=== PATIENT | male | born 1965 | race Caucasian/White ===

== ENCOUNTER 2018-11-13 17:57 | Observation (INO) ==
[2018-11-13] MEDS ORDERED: *HR* HYDROmorphone (PF) 1 MG/ML SYRINGE IVP ONE ×2 (18:03→18:33)
[2018-11-13] MEDS ORDERED: 0.9 % Sodium Chloride 1,000 ML IVC ONE (18:03)
[2018-11-13] MEDS ORDERED: Ondansetron 4 MG/2 ML VIAL IVP ONE (18:03)
--- NOTE | 2018-11-13 18:04 | Emergency Department Note ---
Disposition Clinical Impression: Hip dislocation, left Qualifiers: Encounter type: initial encounter Qualified Code(s): S73.005A - Unspecified dislocation of left hip, initial encounter Disposition: Admitted As Inpatient Condition: Good Referrals: NONE,PCP [Primary Care Provider] - Forms: ED Satisfaction Letter Lower Extremity Injury HPI - General Chief Complaint: ED Extremity Injury, Lower Stated Complaint: left hip and knee pain Time Seen by Provider: 11/13/18 18:02 Source: patient, EMS Mode of arrival: EMS Limitations: no limitations Nursing Notes Reviewed: Yes Vital Signs Reviewed: Yes - History of Present Illness HPI Narrative: Patient states he was working underneath a deck when about a 400 pound section fell from about 8 feet hitting him across the back of his left hip and femur. He was knocked to the ground and pinned with severe pain in the proximal left femur. He denies any injury or impact his head, neck or midline of his back. He denies injury to the upper extremities or right lower extremity. He reports severe pain in about the proximal third a left femur and the leg appears to be mildly internally rotated. He has been brought in by EMS for evaluation. Pt Subjective Complaint: leg injury Injury location: Left thigh Onset (ago): Just LEAD TINNER Mechanism of Injury: blunt Context: direct blow Place: home Pain Severity: severe Improves with: nothing Worsens with: movement, palpation Associated symptoms: Reports: unable to bear weight, deformity. Denies: paresthesias - Related Data Home Medications Medication Instructions Recorded Confirmed No Known Home Drugs 11/13/18 11/13/18 Allergies Allergy/AdvReac Type Severity Reaction Status Date / Time No Known Allergies Allergy Verified 11/13/18 17:59 All systems ED: reviewed and negative except as stated. Past Medical History - Past Medical History Attestation: Yes The following information was validated with the patient. Source: patient, nursing notes reviewed Physical Exam - General Limitations: no limitations General appearance: alert, anxious, in distress - Head Head exam: atraumatic, normocephalic, normal inspection - Eye Eye exam: Present: normal appearance, PERRL, EOMI. Absent: scleral icterus, conjunctival injection - ENT ENT exam: normal exam, normal oropharynx, mucous membranes moist - Neck Neck exam: Present: normal inspection, full ROM, trachea midline - Chest Chest inspection: Present: normal inspection, symmetric chest wall rise - Respiratory Respiratory exam: Present: normal lung sounds bilaterally. Absent: respiratory distress, wheezes, accessory muscle use - Cardiovascular Cardiovascular exam: Present: regular rate, normal rhythm, normal heart sounds - Abdominal Exam Abdominal exam: Present: soft, Non-Tender, normal bowel sounds. Absent: tende rness, distention, guarding, rebound, rigidity - Expanded Upper Extremity Exam Shoulder exam: Present: normal inspection, full ROM. Absent: tenderness, swelling Arm exam: Present: normal inspection, full ROM Elbow exam: Present: normal inspection, full ROM. Absent: tenderness, swelling Forearm/Wrist exam: Present: normal inspection, full ROM. Absent: tenderness, swelling Hand exam: Present: normal inspection, full ROM Vascular exam: Normal: capillary refill, radial pulse - Expanded Lower Extremity Exam Hip/Pelvis exam: Present: internal rotation, pelvis stable, other (Patient denies pain to palpation over the lateral aspect of left hip.). Absent: full ROM Upper leg exam: Present: other (Patient is no fracture deformity. He is internally rotated on the left femur with tenderness over the proximal femur). Absent: full ROM Knee exam: Present: normal inspection. Absent: tenderness, swelling Lower leg exam: Present: normal inspection, full ROM. Absent: tenderness, swelling Ankle exam: Present: normal inspection, full ROM. Absent: tenderness, swelling Foot/toe exam: Present: normal inspection, full ROM Neurovascular/Tendon exam: Present: normal capillary refill. Absent: pulse deficit Gait: not tested/not observed - Back Exam Back exam: Present: normal inspection, full ROM. Absent: tenderness, vertebral tenderness - Neurological Exam Neurological exam: Present: alert, oriented X3 - Psychiatric Psychiatric exam: Present: agitated, anxious - Skin Skin exam: Present: warm, dry, intact, normal color. Absent: diaphoresis, pallor Course Course Narrative: 191: Status post hip reduction I have contacted the orthopedist customer solutions supervisor to discuss his appropriate disposition. Dr Ball advises that he would recommend this patient to bear weight gingerly and use a walker. He would like to recheck later this next week to reassess and then continue to follow him for the possibility of developing avascular necrosis of the hip. He recommends pain medicine and discharged to home when able to ambulate with a walker. Care is discussed with the patient and he feels most comfortable sending the hospital for some more recovery before trying to ambulate. I discussed care with Dr. Steiner who is agreeable with observing for the night with continued oral pain medicine and then assessing ambulation with assistance and a walker in the morning. Verbal orders have been obtained and he is awaiting bed placement for admission. Vital Signs Temperature 98.2 F 11/13/18 18:00 Pulse Rate 76 11/13/18 18:00 Respiratory Rate 18 11/13/18 18:00 Blood Pressure 147/85 11/13/18 18:00 O2 Sat by Pulse Oximetry 100 11/13/18 18:00 Temperature 98 F 11/13/18 19:20 Pulse Rate 76 11/13/18 20:45 Respiratory Rate 18 11/13/18 20:45 Blood Pressure 142/78 11/13/18 20:45 O2 Sat by Pulse Oximetry 100 11/13/18 20:45 Oxygen Delivery Oxygen Delivery [] Nasal Cannula Oxygen Delivery [] Nasal Cannula Oxygen Delivery [] Nasal Cannula Oxygen Delivery [] Nasal Cannula,Ambu Bag Oxygen Delivery [] Nasal Cannula Oxygen Delivery Nasal Cannula Procedures - Orthopedic Joint Reduction Joint #1 Consent Obtained: verbal consent, written consent Time Out Performed: Yes Side: left Joint Reduction Location: hip ASA Classification: CLASS I-Normal, healthy patient Analgesia: procedural sedation Local Anesthesia: other anesthetic Amount of anesthesic used (mL): 15 (etomidate) Shoulder Technique Used (if applicable): other ("Capt. Batres") Post-reduction neuro exam: intact Post-reduction vascular: intact Post Reduction X-Ray Obtained: Yes Post Reduction X-Ray Results: reduced Patient Tolerated Procedure: well, no complications - Procedural Sedation Indication: fracture/dislocation reduction Dietary Status: unknown H&P (including ROS) documented in medical record: Yes Previous reaction to sedatives/anesthetics: No Dentition: No loose teeth or bridges Airway Assessment: Patient can open mouth completely, TMJ function normal Possible difficult airway: No ASA Classification: CLASS I-Normal, healthy patient Plan of Care: Pt appropriate candidate for procedure/moderate/conscious sedation, Risks/benefits of procedure/sedation discussed w/ patient/family, If not NPO; Risk of intake outweiged by necessity to perform procedure Preparation: site monitor applied, pulse oximeter, supplemental O2 applied, suction/airway equipment at bedside, IV secured IV Etomidate Dose (mgs): 15 Patient Tolerated Procedure: well, no complications Complications: none Extremity Injury, Lower - Differential Diagnosis Likely: sprain/strain, fracture, dislocation - Lab Data Lab results reviewed: Yes I reviewed the patient's lab results. Result diagrams: 11/13/18 18:24 11/13/18 18:24 Lab Results 11/13/18 11/13/18 11/13/18 Range/Units 18:24 18:24 18:24 WBC 9.8 (4.3-11.1) K/mcL RBC 3.77 L (4.19-5.50) M/mcL Hgb 11.5 L (12.9-16.9) g/dL Hct 35.9 L (37.5-50.1) % MCV 95.2 (83.0-100.0) fL MCH 30.5 (28.0-33.3) pg MCHC 32.0 (31.6-35.5) g/dL RDW 13.9 (11.5-14.5) % Plt Count 336 (140-400) K/mcL MPV 8.4 L (9.4-12.4) fL Immature Gran % 0.6 (0-4) % Seg Neutrophils % 76.2 % Lymphocytes % 13.0 % Monocytes % 7.8 % Eosinophils % 2.1 % Basophils % 0.3 % Neutrophils # 7.5 (1.6-8.9) K/mcL Lymphocytes # 1.3 (0.6-4.6) K/mcL Monocytes # 0.8 (0.0-1.3) K/mcL Eosinophils # 0.2 (0.0-0.6) K/mcL Basophils # 0.0 (0.0-0.2) K/mcL PT 12.8 H (9.4-12.1) Seconds INR 1.1 APTT 32.5 (26.0-36.0) Seconds Sodium 138 (136-145) mEq/L Potassium 3.5 (3.5-5.1) mEq/L Chloride 102 (98-107) mEq/L Carbon Dioxide 27 (23-29) mEq/L BUN 10 (6-20) mg/dL Creatinine 0.64 L (0.70-1.30) mg/dL Est GFR ( Amer) > 60 (> 60) Est GFR (Non-Af Amer) > 60 (> 60) BUN/Creatinine Ratio 16 (6-26) Glucose 147 H (70-105) mg/dL Calculated Osmolality 288 (280-300) Calcium 9.0 (8.6-10.3) mg/dL - Radiology Data Radiology results reviewed: Yes I reviewed the patient's radiology results. 5 x-ray, 2 view left femur film was obtained. This demonstrates left hip dislocation without fracture. This is on my interpretation. 2 view postreduction film shows adequate left hip relocation without evidence for fracture. This is on my interpretation. Impressions Chest X-Ray 11/13/18 18:02 IMPRESSION: Mild left basilar atelectasis. D/ / 11/13/2018 19:32:44 Taiwo Santana MD / mike Interpreting Provider: Taiwo Santana MD Femur X-Ray 11/13/18 18:02 IMPRESSION: Anterior dislocation of the left hip. No displaced fracture is seen. D/ / 11/13/2018 19:32:27 Taiwo Santana MD / mike Interpreting Provider: Taiwo Santana MD Hip X-Ray 11/13/18 19:13 IMPRESSION: Successful reduction of a left hip dislocation. No displaced fracture is seen. D/ / 11/13/2018 20:25:29 Taiwo Santana MD / mike Interpreting Provider: Taiwo Santana MD
[2018-11-13] MEDS ORDERED: 0.9 % Sodium Chloride 1,000 ML IVC SCH (18:15)
[2018-11-13 18:31] LABS: Basophils % 0.3 %; Eosinophils # 0.2 K/mcL (0.0-0.6); Eosinophils % 2.1 %; Hematocrit 35.9 % (37.5-50.1); Hemoglobin 11.5 g/dL (12.9-16.9); Immature Granulocytes % 0.6 % (0-4); Lymphocytes # 1.3 K/mcL (0.6-4.6); Mean Corpuscular Hemoglobin 30.5 pg (28.0-33.3); Mean Corpuscular Volume 95.2 fL (83.0-100.0); Mean Platelet Volume 8.4 fL (9.4-12.4); Monocytes # 0.8 K/mcL (0.0-1.3); Monocytes % 7.8 %; Neutrophils # 7.5 K/mcL (1.6-8.9); Platelet Count 336 K/mcL (140-400); Red Blood Count 3.77 M/mcL (4.19-5.50); Red Cell Distribution Width 13.9 % (11.5-14.5); Segmented Neutrophils % 76.2 %
[2018-11-13 18:39] LABS: INR 1.1; Prothrombin Time 12.8 Seconds (9.4-12.1)
[2018-11-13 18:41] LABS: Activated Partial Thrombo Time 32.5 Seconds (26.0-36.0)
[2018-11-13 18:46] LABS: BUN/Creatinine Ratio 16 (6-26); Blood Urea Nitrogen 10 mg/dL (6-20); Carbon Dioxide 27 mEq/L (23-29); Chloride 102 mEq/L (98-107); Glucose 147 mg/dL (70-105); Osmolality,Calculated 288 (280-300); Potassium 3.5 mEq/L (3.5-5.1); Sodium 138 mEq/L (136-145); eGFR For Non-African Americans > 60 (> 60)
[2018-11-13] MEDS ORDERED: *HR* Etomidate 20 MG/10 ML AMPUL IVP ONE (18:52)
[2018-11-13] MEDS ORDERED: Ibuprofen 400 MG TABLET PO PRN (21:47)
[2018-11-13] MEDS ORDERED: Naloxone 0.4 MG/ML INJ IVP PRN (21:47)
[2018-11-13] MEDS ORDERED: *HR* OxyCODONE Immed Rel 5 MG TABLET PO PRN (21:47)
[2018-11-13] MEDS ORDERED: Acetaminophen 325 MG TABLET PO PRN (21:47)
[2018-11-13] MEDS ORDERED: *HR* HYDROcodone/Acet 5/325 mg TABLET PO PRN (21:47)
[2018-11-14] MEDS: 0.9 % Sodium Chloride 1,000 ML IVC SCH ×2 (03:21→05:10)
[2018-11-14 10:34] VITALS: BP 129/79
--- NOTE | 2018-11-14 12:45 | Internal Med History&Physical ---
Date of Encounter: 11/14/18 Time of Encounter: 12:20 Assessment and Plan (1) Hip dislocation, left Current visit: Yes Status: Resolved Reduced in emergency room. He reports pain has lessened and he is able to ambulate with walker and feels stable for discharge home. He will use OTC analgesics. Qualifiers: Encounter type: initial encounter Qualified Code(s): S73.005A - Unspecified dislocation of left hip, initial encounter (2) Anemia Current visit: Yes Status: Acute He was unaware labs in emergency room showed slight anemia. He denies NSAID use. I recommended he follow with a PCP for further evaluation. Qualifiers: Anemia type: unspecified type Qualified Code(s): D64.9 - Anemia, unspecified (3) BCC (basal cell carcinoma of skin) Current visit: Yes Status: Acute I recommended he follow with dermatology for excision. Qualifiers: Basal cell carcinoma location: face Basal cell carcinoma face location: unspecified part of face Qualified Code(s): C44.310 - Basal cell carcinoma of skin of unspecified parts of face Internal Medicine - H&P: HPI Chief complaint: Left hip injury Admitted From: Emergency Dept Plans for Post Hospital Care: Home History of present illness: Mr. Blum is a 53 year old male was brought to emergency room after lumbar fell off a truck knocking him to the ground and causing left hip pain. He was brought to emergency room where he was found to have left hip dislocation without fracture. The dislocation was reduced in the emergency room. [facility] orthopedist recommended overnight stay for observation with discharge if walker ambulation could be completed satisfactorily. Patient states he still has pain in his left hip but it has lessened and he has been able to ambulate satisfactory with a walker. He denies other significant injury. He denies previous bone joint or muscle disorders. Past Med Surg Social Fam HX - Past Medical History Medical history: no medical history Psychiatric history: no psych history - Social History Smoking Status: Current every day smoker Smokeless Tobacco Status: No Alcohol use: occasionally Drug use: marijuana Internal Medicine - H&P: Meds No Known Home Drugs 11/13/18 [History] Allergy/AdvReac Type Severity Reaction Status Date / Time No Known Allergies Allergy Verified 11/13/18 17:59 All Systems PM: A 10-system review of systems was performed and is negative for pertinent findings except as documented above in the HPI. Review of systems: Gen.: He states his weight has been stable for many months Cardiovascular: He denies hypertension [place] heart failure angina DVT or pulmonary embolus. Respiratory: He is a lifelong nonsmoker and denies chronic lung disease GI: He has had cholecystectomy. 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 He reports his mother has a similar condition. He denies large distribution strokes or seizures. Endocrine: He denies diabetes thyroid disease or hyperlipidemia Hematology/oncology: He was unaware he had anemia on labs in emergency room. He was diagnosed with probable BCC of his left malar area several months ago but was unable to keep an appointment made with [facility] hand striper. He denies internal malignancies. Psychiatric: He denies anxiety depression or other mental health issues [place] skeletal: He has DJD but denies gout or other bone joint or muscle disorders. - Constitutional Vitals: Temp Pulse Resp BP Pulse Ox 98.9 F 81 18 129/79 95 11/14/18 10:33 11/14/18 10:33 11/14/18 10:33 11/14/18 10:33 11/14/18 10:33 Exam: Gen.: He is a well-developed well-nourished male resting in bed who appears in no acute distress HEENT: Head is atraumatic and normocephalic. Eyes: EOMI. There is no scleral icterus. Mouth: Mucosa is moist. Neck: Supple and nontender. There is no thyromegaly or adenopathy noted. Heart: Regular without murmurs gallops or ectopics Lungs: No wheezes or crackles are heard. Abdomen: Soft and nontender. No masses or guarding are noted. Extremities: There is no cyanosis edema or clubbing noted. Dorsalis pedis and posterior tibial pulses are trace palpable bilaterally. He has pain on gentle flexion and extension movement of the left hip. Neurologic: Mental status: He is talkative and a good historian. Cranial nerves: Smile is symmetric. Forehead wrinkles bilaterally. Tongue protrudes midline. EOMI. Motor: There is no pronator drift. Cerebellar: Finger to nose is intact bilaterally. Skin: Warm and dry. He has multiple well healed circular scars on the skin of his legs and arms measuring up to approximately 1 cm diameter Internal Med - H&P Results - Labs CBC & Chem 7: 11/13/18 18:24 11/13/18 18:24 Labs: Short CBC 11/13/18 Range/Units 18:24 WBC 9.8 (4.3-11.1) K/mcL Hgb 11.5 L (12.9-16.9) g/dL Hct 35.9 L (37.5-50.1) % Plt Count 336 (140-400) K/mcL Neutrophils # 7.5 (1.6-8.9) K/mcL BMP 11/13/18 18:24 Sodium 138 Potassium 3.5 Chloride 102 Carbon Dioxide 27 BUN 10 Creatinine 0.64 L Glucose 147 H Calcium 9.0 - Impressions ITS Impressions Chest X-Ray 11/13/18 18:02 IMPRESSION: Mild left basilar atelectasis. D/ / 11/13/2018 19:32:44 Taiwo Santana MD / mike Interpreting Provider: Taiwo Santana MD Femur X-Ray 11/13/18 18:02 IMPRESSION: Anterior dislocation of the left hip. No displaced fracture is seen. D/ / 11/13/2018 19:32:27 Taiwo Santana MD / mike Interpreting Provider: Taiwo Santana MD Hip X-Ray 11/13/18 19:13 IMPRESSION: Successful reduction of a left hip dislocation. No displaced fracture is seen. D/ / 11/13/2018 20:25:29 Taiwo Santana MD / mike Interpreting Provider: Taiwo Santana MD
--- NOTE | 2018-11-14 13:04 | Discharge Summary ---
Date of Encounter: 11/14/18 Time of Encounter: 12:20 - Discharge Diagnosis (1) Hip dislocation, left Priority: Primary Status: Resolved Qualifiers: Encounter type: initial encounter Qualified Code(s): S73.005A - Unspecified dislocation of left hip, initial encounter (2) Anemia Priority: Secondary Status: Acute Qualifiers: Anemia type: unspecified type Qualified Code(s): D64.9 - Anemia, unspecified (3) BCC (basal cell carcinoma of skin) Priority: Secondary Status: Acute Qualifiers: Basal cell carcinoma location: face Basal cell carcinoma face location: unspecified part of face Qualified Code(s): C44.310 - Basal cell carcinoma of skin of unspecified parts of face Hospital course: Mr. Blum is a 53 year old male who was brought to emergency room after lumber fell off a truck knocking him to the ground and causing left hip pain. He was brought to emergency room where he was found to have left hip dislocation without fracture. The dislocation was reduced in the emergency room. [facility] orthopedist recommended overnight stay for observation with discharge if walker ambulation could be completed satisfactorily. Initial orders were written by the emergency room physician. I saw him on October 18 and performed a history physical and discharge. When I saw him he stated the pain had lessened and he had been able to ambulate using a walker. He felt stable for discharge home. He will use OTC analgesics. I wrote a prescription for a wheeled walker. I recommended he follow up with a PCP for further evaluation of anemia and left face basal cell cancer. - Time Spent with Patient Total time spent providing and/or coordinating discharge services: - Discharge Medications Home Medications: Acetaminophen [Tylenol] 650 mg PO Q6HR PRN tablet 11/14/18 [Rx] Allergies/Adverse Reactions: Allergy/AdvReac Type Severity Reaction Status Date / Time No Known Allergies Allergy Verified 11/13/18 17:59 Date of admission: 11/13/18 21:26 Primary care physician: PCP NONE Consults: 11/13/18 21:47 Consult to Physical Therapy [CONS] Routine Comment: Evaluate, develop and implement POC Reason for Consult: Thyroid instructed on use of a walker. Does patient have active BEDREST order?: No Is patient medically & hemodynamically stable?: Yes Patient assessed for mobility or mobilized this visit?: No - Constitutional Vitals: Temp Pulse Resp BP Pulse Ox 98.9 F 81 18 129/79 95 11/14/18 10:33 11/14/18 10:33 11/14/18 10:33 11/14/18 10:33 11/14/18 10:33 - Patient Status Disposition: Home, Self-Care Condition: Good - Discharge Instructions Follow Up With: NONE,PCP [Primary Care Provider] - 1 week - Diet and Activity Activity: resume usual activities as tolerated Diet: advance to your usual diet
== END 2018-11-14 14:39 | disposition home or self-care (01) ==
LOC: EMEROOPIK 17:57 → INPPIK 17:57
PROVIDERS: ADMIT Internal Medicine; ATTEND Internal Medicine